=== PATIENT | female | born 1970 | race Two or more races ===

== ENCOUNTER 2020-02-20 12:56 | Emergency (ER) | payer SELFPAY ==
[~2020-02-20] VITALS: Ht 154.9 cm; Wt 62.6 kg
[2020-02-20 13:14] VITALS: BP 124/68
--- NOTE | 2020-02-20 13:16 | NUR ---
ED Nurse Note:pt. came from home with c/o right shoulder pain after mechanical fall today, skin is intact no deformities
[2020-02-20] MEDS ORDERED: Methocarbamol 750mg tab ORAL ONE (13:45)
--- NOTE | 2020-02-20 15:31 | Diagnostic Imaging Report ---
Indication: Pain after mechanical fall Technique: Spiral acquisitions obtained through the cervical spine. No IV contrast utilized. Multiplanar reconstructions were generated. Total dose length product 132 mGycm. CTDIvol(s) 60 mGy. Dose reduction achieved using automated exposure control. Comparison: none Findings: There is a lucency in the left C7 pars interarticularis which on the axial view extends into the pedicle vertebral body. This is not evident on the coronal images. There is also widening of the space between the C6 and C7 spinous processes. No other acute fractures are demonstrated. No dislocations. There is reversal of the normal cervical lordosis. No prevertebral soft tissue swelling. At at C3-4, there is broad-based posterior disc protrusion. This does not result in significant narrowing of the spinal canal. The neural foramina are preserved. At C5-6, posterior osteophytes result in mild central and right lateral canal stenosis and may impinge slightly on the lateral recess. There is mild narrowing of the right neural foramen. The disc space is preserved. At C6-7, there is left paracentral dense material in the epidural space, protruding approximate 5 mm posteriorly and obliterating the lateral recess. This extends approximately 9 mm cephalad from the disc level. At C7-T1, no significant disc bulge or protrusion, spinal stenosis, or neural foraminal stenosis. Impression: Nondisplaced fracture of the left C7 pars interarticularis Widening of the C6 and C7 spinous processes, could indicate intervening ligamentous injury Material in the low left lateral epidural space at and above the C6-7 disc. This is probably an extruded disc, but given the above described injury the possibility that this represents a small epidural hematoma should also be considered. This impinges on the left lateral recess. Mild degenerative changes, as detailed on a level by level basis above Critical value findings phoned to Dr. Hinojosa in the emergency room at the time of interpretation The CT scanner at [facility] is accredited by the [employer] and the scans are performed using protocols designed to limit radiation exposure to as low as reasonably achievable to attain images of sufficient resolution adequate for diagnostic evaluation.
--- NOTE | 2020-02-20 16:12 | NUR ---
ED Nurse Note:blood and urine sent to labs, neck macy placed on pt. per provider order
[2020-02-20 16:14] LABS: HEMATOCRIT 26.8 % (37.0-47.0); HEMOGLOBIN 7.7 G/DL (12.0-16.0); MEAN CORPUSCULAR VOLUME 66 FL (80-99); PLATELET COUNT 355 K/UL (150-450); RED BLOOD COUNT 4.07 M/UL (4.20-5.40); RED CELL DISTRIBUTION WIDTH 18.5 % (11.6-14.8); WHITE BLOOD COUNT 13.6 K/UL (4.8-10.8)
[2020-02-20 16:32] LABS: ANION GAP 13 mmol/L (5-15); BLOOD UREA NITROGEN 7 mg/dL (7-18); CALCIUM 8.1 MG/DL (8.5-10.1); CARBON DIOXIDE 23 MMOL/L (21-32); CHLORIDE 101 MMOL/L (98-107); CREATININE 0.6 MG/DL (0.55-1.30); POTASSIUM 3.8 MMOL/L (3.5-5.1); SODIUM 136 MMOL/L (136-145)
--- NOTE | 2020-02-20 16:36 | NUR ---
ED Nurse Note:pt. had neck MRI done
[2020-02-20 16:38] LABS: ALANINE AMINOTRANSFERASE 33 U/L (12-78); ALBUMIN 3.8 G/DL (3.4-5.0); ALKALINE PHOSPHATASE 86 U/L (46-116); ASPARTATE AMINO TRANSFERASE 48 U/L (15-37); BILIRUBIN,TOTAL 0.3 MG/DL (0.2-1.0)
--- NOTE | 2020-02-20 16:39 | Emergency Room Report ---
History of Present Illness General Chief Complaint: Upper Extremity Injury Source: Patient (Kassie Novak N. P.A.) Present Illness HPI 49-year-old female with no past medical history presents with upper back/ shoulder pain bilaterally status post mechanical fall around 830 this morning. She reports she was trying to slide out of bed but she lost her balance and fell onto her upper back. She denies head injury, LOC, vomiting. She reports feeling weak in her hands. Denies numbness or tingling. No lower back pain. Denies drinking alcohol or using any drugs. (Kassie Novak N. P.A.) Allergies: Coded Allergies: No Known Allergies (Unverified , 02/20/20) COVID-19 Screening Contact w/high risk pt: No Experienced COVID-19 symptoms?: No COVID-19 Testing performed ROLLER VARNISHER: No (Kassie Novak N. P.A.) Patient History Past Medical History: see triage record Last Menstrual Period: 02/15/20 Reviewed Nursing Documentation: PMH: Agreed; PSxH: Agreed (Kassie Novak N. P.A.) Nursing Documentation-PMH Past Medical History: No History, Except For Hx Gastrointestinal Problems: Yes - gastritis (Kassie Novak N. P.A.) Review of Systems All Other Systems: negative except mentioned in HPI (Kassie Novak N. P.A.) Physical Exam Vital Signs Date Time Temp Pulse Resp B/P (MAP) Pulse Ox O2 Delivery O2 Flow Rate FiO2 02/20/20 13:02 99.9 70 18 124/68 (86) 98 Room Air General Appearance: well appearing, mild distress Head: normocephalic, atraumatic Eyes: bilateral eye EOMI ENT: normal ENT inspection Neck: normal inspection, tender midline Respiratory: lungs clear, no respiratory distress Cardiovascular #1: regular rate, rhythm Cardiovascular #2: 2+ radial (R), 2+ radial (L) Neurologic: alert, oriented, sensory intact, speech normal, normal gait, other - Decreased hand patient care associate strength bilaterally 4/5. Psychiatric: judgement/insight normal, mood/affect normal (Kassie Novak N. P.A.) Medical Decision Making PA Attestation Dr. Waters is my supervising physician whom patient management and care has been discussed with. (Kassie Novak) Diagnostic Impression: Primary Impression: Cervical spine fracture Qualified Codes: S12.601A - Unspecified nondisplaced fracture of seventh cervical vertebra, initial encounter for closed fracture Additional Impression: Ligament rupture ER Course Pt. presents to the ED c/o pain to the upper back and shoulder s/p trauma while trying to get out of bed this morning. She is also complaining of weakness in her bilateral hands. Denies head injury, LOC, vomiting. Ddx considered but are not limited to fracture, subluxation, dislocation, ligamentous injury, hematoma. Vital signs: are WNL. H&PE are most consistent with C7 fracture and ligament injury. ORDERS: CT C-spine shows a nondisplaced fracture of the left C7 pars interarticularis. There was a question of a possible small epidural hematoma, therefore MRI was ordered for further evaluation. MRI with no signs of hematoma. Please see radiology reports. T-spine MRI shows choledocholithiasis however patient does not complain of any abdominal pain and is not tender on exam. Slight leukocytosis at 13.6 and hemoglobin low at 7.7. Patient denies history of anemia. Denies vaginal or rectal bleeding. Madan viral symptoms. Rapid COVID swab collected. ED INTERVENTIONS: Patient placed in a hard c-collar. DISPOSITION: Neurosurgery at [facility] was consulted and spoke to my supervising physician, Dr. Maurer, and accepted patient for transfer for higher level of care. Laboratory Tests Test 02/20/20 15:40 02/20/20 15:50 Urine HCG, Qualitative Negative (NEGATIVE) White Blood Count 13.6 K/UL (4.8-10.8) H Red Blood Count 4.07 M/UL (4.20-5.40) L Hemoglobin 7.7 G/DL (12.0-16.0) L Hematocrit 26.8 % (37.0-47.0) L Mean Corpuscular Volume 66 FL (80-99) L Mean Corpuscular Hemoglobin 18.9 PG (27.0-31.0) L Mean Corpuscular Hemoglobin Concent 28.7 G/DL (32.0-36.0) L Red Cell Distribution Width 18.5 % (11.6-14.8) H Platelet Count 355 K/UL (150-450) Mean Platelet Volume 7.8 FL (6.5-10.1) Neutrophils (%) (Auto) % (45.0-75.0) Lymphocytes (%) (Auto) % (20.0-45.0) Monocytes (%) (Auto) % (1.0-10.0) Eosinophils (%) (Auto) % (0.0-3.0) Basophils (%) (Auto) % (0.0-2.0) Differential Total Cells Counted 100 Neutrophils % (Manual) 85 % (45-75) H Lymphocytes % (Manual) 12 % (20-45) L Monocytes % (Manual) 3 % (1-10) Eosinophils % (Manual) 0 % (0-3) Basophils % (Manual) 0 % (0-2) Band Neutrophils 0 % (0-8) Platelet Estimate Adequate Platelet Morphology Normal Hypochromasia 1+ Anisocytosis 1+ Microcytosis 1+ Prothrombin Time 10.8 SEC (9.30-11.50) Prothrombin Time INR 1.0 (0.9-1.1) Activated Partial Thromboplast Time 24 SEC (23-33) Sodium Level 136 MMOL/L (136-145) Potassium Level 3.8 MMOL/L (3.5-5.1) Chloride Level 101 MMOL/L (98-107) Carbon Dioxide Level 23 MMOL/L (21-32) Anion Gap 13 mmol/L (5-15) Blood Urea Nitrogen 7 mg/dL (7-18) Creatinine 0.6 MG/DL (0.55-1.30) Estimated Glomerular Filtration Rate > 60 mL/min (>60) Glucose Level 117 MG/DL (74-106) H Calcium Level 8.1 MG/DL (8.5-10.1) L Total Bilirubin 0.3 MG/DL (0.2-1.0) Aspartate Amino Transferase (AST) 48 U/L (15-37) H Alanine Aminotransferase (ALT) 33 U/L (12-78) Alkaline Phosphatase 86 U/L (46-116) Total Protein 7.5 G/DL (6.4-8.2) Albumin 3.8 G/DL (3.4-5.0) Globulin 3.7 g/dL Albumin/Globulin Ratio 1.0 (1.0-2.7) Human Chorionic Gonadotropin, Qual Negative (NEGATIVE) (Kassie Novak N. P.A.) ER Course I was involved in the management of this patient's care. The patient was found to have a C7 pars interarticularis fracture and also has findings of disruption of the posterior longitudinal ligament and ligamentum flavum at the same level. Neuro surgery was consulted at [facility] and accepted this patient for further monitoring. The patient was kept in spinal precautions and in a C-spine collar during her ED course here at [facility] She was transferred to higher level of care at [facility]. (Darby Maurer DO) CT/MRI/US Diagnostic Results CT/MRI/US Diagnostic Results : Impression CT C-spine noncontrast, impression by radiologist: Nondisplaced fracture of the left C7 pars interarticularis. Widening of the C6 and C7 spinous processes, could indicate intervening ligamentous injury. Material in the low left lateral epidural space at and above the C6-7 disc. This is probably an extruded disc, but given the above described injury the possibility that this represents a small epidural hematoma should also be considered. This impinges on the left lateral recess. Mild degenerative changes, as detailed on a level by level basis above. MRI C-spine IMPRESSION: 1. Disruption of the posterior longitudinal ligament and ligamentum flavum at the level of C6-7. 2. Edema within the interspinous ligament at C6-7 and throughout the paraspinous musculature. 3. The nondisplaced fracture through the left C7 pars interarticularis was better visualized on the CT. 4. Degenerative spondylosis most pronounced at C5-6 and C6-7. MRI T-spine IMPRESSION: 1. No fracture or malalignment. 2. Edema within the paraspinous musculature in the upper thoracic region consistent with strain. No ligamentous disruption. 3. Stones within the gallbladder. Filling defect within the distal common bile duct measuring 7 mm (image [id number]) likely representing choledocholithiasis. (Kassie Novak N. P.A.) Last Vital Signs Date Time Temp Pulse Resp B/P (MAP) Pulse Ox O2 Delivery O2 Flow Rate FiO2 02/20/20 14:45 99.7 02/20/20 13:14 18 124/68 98 Room Air 02/20/20 13:02 70 (Kassie Novak) Disposition: SHORT-TERM HOSP Condition: Stable Referrals: NOT CHOSEN IPA/,REFERRING (PCP) Kassie Novak Feb 20, 2020 16:39 Darby Maurer DO Feb 20, 2020 19:03
--- NOTE | 2020-02-20 17:30 | NUR ---
ED Nurse Note: Report received from PIPER Nichols. Patient in MRI scan.
[2020-02-20 17:51] VITALS: BP 135/72
--- NOTE | 2020-02-20 17:58 | NUR ---
ED Nurse Note: Patient returned from MRI scan. Hard cervical collar remained with patient. Instructed patient to remain on supine and spinal precaution maintained. Patient awake, alert, oriented x 4. Reports no pain. Patient still having numbness, tingling in hands since the fall and bilateral hand shank carrier is weak. Reports no numbness, weakness or tingling in BLE.
--- NOTE | 2020-02-20 18:06 | Diagnostic Imaging Report ---
EXAM: MR Cervical Spine Without Intravenous Contrast CLINICAL HISTORY: TRAUMA TECHNIQUE: Magnetic resonance images of the cervical spine without intravenous contrast in multiple planes. COMPARISON: CT cervical spine 02/20/2020 FINDINGS: The nondisplaced fracture through the left C7 pars interarticularis was better visualized on the CT. No other fracture. Straightening of the normal cervical lordosis. There is disruption of the posterior longitudinal ligament at the level of C6-7 (image 5-5) there is disruption of the ligamentum flavum at C6-7 (image 5-8). The anterior longitudinal ligament is intact. Edema within the interspinous ligament at the level of C6-7. Diffuse paraspinous musculature edema. No cord signal abnormality. C2-3: No spinal canal or foraminal stenosis. C3-4: Central disc protrusion causing mild spinal canal stenosis and abutting the ventral cord. No foraminal stenosis. C4-5: Diffuse disc osteophyte complex which abuts the ventral cord. Mild spinal canal stenosis. No significant foraminal stenosis. C5-6: Diffuse disc osteophyte complex which abuts the ventral cord and causes moderate spinal canal stenosis. Mild foraminal stenosis on the right. No stenosis on the left. C6-7: Diffuse disc osteophyte complex with a superimposed left foraminal disc protrusion. Moderate spinal canal stenosis. Severe left and mild right foraminal stenosis. C7-T1: No spinal canal or foraminal stenosis. IMPRESSION: 1. Disruption of the posterior longitudinal ligament and ligamentum flavum at the level of C6-7. 2. Edema within the interspinous ligament at C6-7 and throughout the paraspinous musculature. 3. The nondisplaced fracture through the left C7 pars interarticularis was better visualized on the CT. 4. Degenerative spondylosis most pronounced at C5-6 and C6-7.
--- NOTE | 2020-02-20 18:12 | Diagnostic Imaging Report ---
EXAM: MR Thoracic Spine Without Intravenous Contrast CLINICAL HISTORY: TRAUMA TECHNIQUE: Magnetic resonance images of the thoracic spine without intravenous contrast in multiple planes. COMPARISON: No relevant prior studies available. FINDINGS: No fracture or malalignment. Vertebral body heights are preserved. Mild disc desiccation within the central thoracic spine. No spinal canal or foraminal stenosis. Cord signal is within normal limits. Edema within the paraspinous musculature in the upper thoracic region consistent with strain. No ligamentous disruption. Stones within the gallbladder. Filling defect within the distal common bile duct measuring 7 mm (image 9-43) likely representing choledocholithiasis. Distention of the common bile duct up to 8 mm. IMPRESSION: 1. No fracture or malalignment. 2. Edema within the paraspinous musculature in the upper thoracic region consistent with strain. No ligamentous disruption. 3. Stones within the gallbladder. Filling defect within the distal common bile duct measuring 7 mm (image 9-43) likely representing choledocholithiasis.
--- NOTE | 2020-02-20 18:15 | NUR ---
ED Nurse Note: Report given to PIPER Merrill. Moved patient to monitor bed 3. No changes is her neudro status from previous. Patient awake, alert, oriented x4. Regular, unlabor breathing noted. Maintained spinal precaution.
--- NOTE | 2020-02-20 18:16 | NUR ---
ED Nurse Note: received pt from PIPER Dumont due to CT results which were C7 fracture and a small epidural hematoma. pt aao x4 and has C-collar, no SOB or labored breathing at this time. pt denied chest pain or cough but BUE numbness. pt came back from MRI and still wating for the results. pt is on desk monitor. vs stable.
[2020-02-20 18:18] VITALS: BP 135/65
--- NOTE | 2020-02-20 18:19 | NUR ---
ED Nurse Note: pt in supine position. pt tolerating well.
[2020-02-20 19:10] VITALS: BP 125/70
--- NOTE | 2020-02-20 19:10 | NUR ---
ED Nurse Note: Report received from Ta Nogueira RN. Pt is resting in bed supine. She notes pain 5/10, but does not want anything for pain management at this time. Pt instructed to let RN know if pain becomes worse. Cervical collar in place on pt. Will continue to monitor. Pt is awake and alert. NAD. VSS.
--- NOTE | 2020-02-20 19:10 | NUR ---
HAND-OFF: Report given to PIPER Gardner.
--- NOTE | 2020-02-20 19:55 | NUR ---
ED Nurse Note: Report given to PIPER Moura. Awaiting on transport at this time.
[2020-02-20 21:00] VITALS: BP 118/60
--- NOTE | 2020-02-20 21:10 | NUR ---
ED Nurse Note: Pt now c/o 02/21 hand pain and is requesting pain medicine. LIZETT made aware.
[2020-02-20] MEDS ORDERED: HYDROcodone/Acetamin 5/325 tab ORAL ONE (21:30)
--- NOTE | 2020-02-20 21:35 | NUR ---
ED Nurse Note: [place] administered as ordered. Pt is resting in bed supine position with safety measures in place. Awaiting on transport at this time. NAD. VSS. Pt also used bed time two times with approx 800cc urine output.
[2020-02-20 22:30] VITALS: BP 128/60
--- NOTE | 2020-02-20 22:30 | NUR ---
ED Nurse Note: Pt is stable for transfer to [facility] at this time per ERMD. Pt being transported by [facility] BLS unit [id number]. Pt transferred to [facility] without complication and remains in supine position and neck collar is in place. Report given to EMS crew. Pt IV is patent and intact. Pt is aaox4, breathing is normal and unlabored with stable vital signs. Pt belongings sent with EMS crew.
== END 2020-02-20 22:30 | disposition short-term general hospital (02) ==
LOC: EMR 13:30
DX: S12.601A Unspecified nondisplaced fracture of seventh cervical vertebra, initial encounter for closed fracture (principal); S13.4XXA Sprain of ligaments of cervical spine, initial encounter; M47.812 Spondylosis without myelopathy or radiculopathy, cervical region; K80.80 Other cholelithiasis without obstruction; W06.XXXA Fall from bed, initial encounter; Y92.9 Unspecified place or not applicable
CPT/HCPCS: 36415; 72125; 72141; 72146; 80053; 81025; 84703; 85007; 85025; 85610; 85730; 96360; 99285; J7030; U0002